=== PATIENT | female | born 1980 | race African-American/Black ===

== ENCOUNTER 2018-01-20 08:45 | Day surgery (SDC) | payer OTHER ==
[2018-01-19 15:22] VITALS: BMI 35.4
[2018-01-20] MEDS ORDERED: fentaNYL CITRATE 250 MCG/5 ML VIAL ONE (10:06)
[2018-01-20] MEDS ORDERED: ROCURONIUM BROMIDE 50 MG/5 ML VIAL ONE ×2 (10:06→12:30)
[2018-01-20] MEDS ORDERED: PROPOFOL 20 ML ONE (10:06)
[2018-01-20] MEDS ORDERED: DEXAMETHASONE SOD PHOSPHATE 4 MG/1 ML VIAL ONE (10:07)
[2018-01-20] MEDS ORDERED: LIDOCAINE HCL/PF 2% SDV 5ML VIAL ONE (10:07)
[2018-01-20] MEDS ORDERED: MIDAZOLAM HCL 2 MG/2 ML SINGLE DOSE VIAL ONE (10:07)
--- NOTE | 2018-01-20 10:41 | HP ---
Admitting History and Physical - Admission Chief Complaint: umbilical bulge History Source: Patient Limitations to Obtaining History: No Limitations - Past Medical History Hepatobiliary: Yes: Cholelithiasis ...LMP: 01/13/18 - Past Surgical History Past Surgical History: Yes: Cholecystectomy - Smoking History Smoking history: Current every day smoker Have you smoked in the past 12 months: Yes Aproximately how many cigarettes per day: 10 - Alcohol/Substance Use Hx Alcohol Use: Yes (occasional) Home Medications - Allergies Allergies/Adverse Reactions: Allergies Allergy/AdvReac Type Severity Reaction Status Date / Time codeine Allergy Difficulty Verified 01/19/18 15:14 Breathing - Home Medications Home Medications: Ambulatory Orders Ibuprofen [Motrin -] 800 mg PO ASDIR PRN 01/19/18 Review of Systems - Review of Systems Constitutional: reports: No Symptoms Eyes: reports: No Symptoms HENT: reports: No Symptoms Neck: reports: No Symptoms Cardiovascular: reports: No Symptoms Respiratory: reports: No Symptoms Gastrointestinal: reports: Abdominal Pain (over at umbilical bulge) Breasts: reports: No Symptoms Reported Neurological: reports: No Symptoms Physical Examination Vital Signs: Vital Signs Temperature 97.8 F 01/20/18 09:05 Pulse Rate 84 01/20/18 09:05 Respiratory Rate 18 01/20/18 09:05 Blood Pressure 143/67 01/20/18 09:05 O2 Sat by Pulse Oximetry (%) 100 01/20/18 09:06 Constitutional: Yes: Obese Eyes: Yes: Conjunctiva Clear HENT: Yes: Normocephalic Neck: Yes: Supple Cardiovascular: Yes: Regular Rate and Rhythm Respiratory: Yes: CTA Bilaterally Gastrointestinal: Yes: Normal Bowel Sounds, Abdomen, Obese, Hernia (4 cm umbilical bulge with tenderness) ...Rectal Exam: Yes: Deferred Renal/: Yes: WNL Extremities: Yes: WNL Neurological: Yes: Alert, Oriented Problem List - Problems (1) Ventral hernia with obstruction Assessment/Plan: robotic assisted ventral/umbilical hernia repair with mesh Code(s): K43.6 - OTHER AND UNSP VENTRAL HERNIA WITH OBSTRUCTION, W/O GANGRENE
[2018-01-20] MEDS ORDERED: oxyCODONE HCL 5 MG TABLET PO PRN (10:46)
[2018-01-20] MEDS ORDERED: ONDANSETRON 4 MG/2 ML VIAL IVPUSH PRN (10:46)
[2018-01-20] MEDS ORDERED: LACTATED RINGERS SOLUTION 1,000 ML IV SCH (11:00)
[2018-01-20] MEDS ORDERED: ceFAZolin SODIUM 1 GM VIAL IVPB ONE (11:31)
[2018-01-20] MEDS ORDERED: ACETAMINOPHEN 1000 MG/100 ML VIAL (NON FORMULARY) IVPB PRN (11:31)
[2018-01-20] MEDS ORDERED: BUPIVACAINE HCL/PF 0.5% (5MG/ML) 10 ML VIAL ONE (11:42)
[2018-01-20] MEDS ORDERED: BUPIVACAINE HCL/PF 0.5% (5MG/ML) 10 ML VIAL IJ ONE (12:15)
[2018-01-20] MEDS ORDERED: NEOSTIGMINE METHYLSULFATE 0.5 MG/ML - 10 ML MDV ONE (13:25)
[2018-01-20] MEDS ORDERED: GLYCOPYRROLATE 0.2 MG/1 ML VIAL ONE (13:26)
--- NOTE | 2018-01-20 13:57 | OP ---
Operative Note - Note: Operative Date: 01/20/18 Pre-Operative Diagnosis: Ventral Hernia Operation: Robotic ventral hernia repair Findings: as dictated Implants: mesh as dictated Post-Operative Diagnosis: Same as Pre-op Surgeon: Haja Omer Client Services Director: Be Bowden Anesthesiologist/SMALL ENGINE TECHNICIAN: Kali Thompson Anesthesia: General, Local (10cc .25% Marcaine ) Specimens Removed: none Estimated Blood Loss (mls): 10 (ml) Drains & Tubes with Location: none Fluid Volume Replaced (mls): 700 (ml LR) Operative Report Dictated: Yes
--- NOTE | 2018-01-20 13:58 | SURG ---
Surgery Positive Printer Operator Note Positive Printer Operator: Be Bowden PA-C Date of Service: 01/20/18 Diagnosis: Ventral Hernia Procedure: Robotic ventral hernia repair I was present for the entirety of the operative procedure. For further detail, please refer to operative report. Visit type - Case Type Case Type: Scheduled - Emergency Emergency Visit: No - New patient This patient is new to me today: Yes Date on this admission: 01/20/18
[2018-01-20] MEDS ORDERED: ONDANSETRON 4 MG/2 ML VIAL ONE (14:07)
[2018-01-20] MEDS ORDERED: KETOROLAC TROMETHAMINE 30 MG/1 ML VIAL IVPUSH PRN (14:08)
--- NOTE | 2018-01-20 14:20 | OP ---
DATE OF OPERATION: 01/20/2018 PROCEDURE: Robotic-assisted laparoscopic ventral/umbilical hernia repair with mesh. PREOPERATIVE DIAGNOSIS: Ventral/umbilical hernia. POSTOPERATIVE DIAGNOSIS: Ventral/umbilical hernia. SURGEON: Haja Omer MD METAL BUILDINGS ASSEMBLER: Consuelo Alcantara ANESTHESIA: General endotracheal. FINDINGS ON PROCEDURE: This is a 37-year-old female who presents with painful umbilical bulge which was about 4 cm in size with ill-defined defect associated with pain on insertion. The patient was advised hernia repair, and consent was obtained after discussing the risks, benefits, and alternatives of the procedure. DESCRIPTION OF PROCEDURE: Patient was brought to the operating room and placed in supine position. General endotracheal anesthesia was administered. Both arms were then tucked to the side, and a roll was placed under the patient's left flank. The abdomen was prepped and draped in the usual sterile fashion. Using the Veress needle technique, pneumoperitoneum was established via an 8-mm incision in the left subcostal region. This was followed by insertion of an 8-mm port. Two other 8- mm ports were inserted behind the axillary line 8 cm away from each other under direct vision using the 3D laparoscope. Afterwards, the target organ was set, and the robotic arms were docked. The 3D laparoscope was placed in the middle port, and the fenestrated bipolar grasper was inserted at the lower most port, and the EndoWrist sheri connected to monopolar cautery was inserted at the left subcostal port. The undersigned then started to commence the console part of the procedure. The preperitoneal pocket was made using the laparoscopic sheri, incising the parietal peritoneum at the area lateral to the rectus muscle. During the process, due to the wide diastasis of the patient, the pocket that was made eventually became a subcutaneous pocket, and about 10 x 10 cm size was made. Afterwards, a 10-inch rounded ProGrip mesh was deployed posterior under the subcutaneous level, and the pocket was closed with continuous V-Loc 2-0 absorbable stitches. An attempt to appose the diastasis proved to be unsuccessful due to its wide distance from each side of the midline. So, it was then decided to abandon the imbrication of the diastasis. The robotic arms were undocked, and the ports were removed. The wounds were closed with subcuticular Biosyn 4-0 sutures, and a pressure dressing was applied over the umbilicus. The patient was successfully extubated and transferred to the post-anesthesia care unit in satisfactory condition. ESTIMATED BLOOD LOSS: Minimal or about 5 mL. WOUND CLASS: Clean. The patient received 2 g of Ancef prior to the start of the procedure. Riddhi [id number] MTDD
[2018-01-20] MEDS ORDERED: KETOROLAC TROMETHAMINE 30 MG/1 ML VIAL ONE (14:29)
[2018-01-20] MEDS ORDERED: ACETAMINOPHEN INJECTION 100 ML IVPB ONE (14:29)
[2018-01-20 16:05] VITALS: TEMP 98
[2018-01-20 17:45] VITALS: BP 130/70; PULSE 88
== END 2018-01-20 17:00 | disposition home or self-care (01) ==
LOC: JASU-SURG 08:45
PROVIDERS: ATTEND Surgery
PROC: 8E0W4CZ Robotic Assisted Procedure of Trunk Region, Percutaneous Endoscopic Approach (ICD-10-PCS; 2018-01-20)
PROC: 0WUF4JZ Supplement Abdominal Wall with Synthetic Substitute, Percutaneous Endoscopic Approach (ICD-10-PCS; principal; 2018-01-20 10:00)
DX: K43.9 Ventral hernia without obstruction or gangrene (principal)
CPT/HCPCS: 49652; S2900; 84703; 94760; J0131

== ENCOUNTER 2018-07-04 11:46 | Day surgery (SDC) | payer OTHER ==
[2018-07-03 17:39] VITALS: BMI 35.4
[2018-07-04] MEDS ORDERED: LIDOCAINE HCL/PF 2% SDV 5ML VIAL ONE (13:00)
[2018-07-04] MEDS ORDERED: PROPOFOL 20 ML ONE ×2 (13:00)
[2018-07-04] MEDS ORDERED: MIDAZOLAM HCL 2 MG/2 ML SINGLE DOSE VIAL ONE (13:01)
[2018-07-04] MEDS ORDERED: ceFAZolin SODIUM 1 GM VIAL IVPB ONE (13:42)
[2018-07-04] MEDS ORDERED: ceFAZolin SODIUM 1 GM VIAL ONE (13:43)
[2018-07-04] MEDS ORDERED: OXYTOCIN 10 UNITS/ML VIAL ONE (13:47)
[2018-07-04] MEDS ORDERED: KETOROLAC TROMETHAMINE 30 MG/1 ML VIAL ONE (13:49)
[2018-07-04] MEDS ORDERED: ACETAMINOPHEN 325 MG TABLET (FP) PO PRN (14:01)
[2018-07-04] MEDS ORDERED: IBUPROFEN 400 MG TABLET (FP) PO PRN (14:01)
[2018-07-04] MEDS ORDERED: ONDANSETRON 4 MG/2 ML VIAL IVPUSH PRN (14:01)
[2018-07-04] MEDS ORDERED: RHO(D) IMMUNE GLOBULIN 1,500 UNIT DISP.SYRIN IM ONE (14:04)
[2018-07-04] MEDS ORDERED: LACTATED RINGERS SOLUTION 1,000 ML IV SCH (14:15)
[2018-07-04] MEDS ORDERED: ACETAMINOPHEN 325 MG TABLET (FP) ONE (14:56)
[2018-07-04 15:21] VITALS: PULSE 87
--- NOTE | 2018-07-04 15:41 | OP ---
DATE OF OPERATION: 07/04/2018 DATE OF DICTATION: 07/04/2018 PREOPERATIVE DIAGNOSIS: Missed . POSTOPERATIVE DIAGNOSIS: Missed . PROCEDURE: 1. Suction dilatation and curettage. 2. Attempted karyotyping. SURGEON: Gianfranco Corral MD ANESTHESIOLOGIST: ADINA Garrison ANESTHESIA: General, LMA. PROCEDURE AND FINDINGS: Under general anesthesia in dorsal lithotomy position patient was examined. Uterus was found to be enlarged beyond gestational age with possible leiomyomata. It felt at least 8, possibly 10 weeks' size. There was mild relaxation and a multiparous vagina. Cervix was closed. Routine prep and drape was done. Cervix was grasped with a tenaculum and gently dilated. Suction curet number 9 was negotiated into the cavity. Suction curettage was performed producing reasonably small amount of tissue. Sharp curettage alternated. Those procedures were repeated until uterine cavity was completely empty. The patient was given oxytocin IV during the procedure. Attempt was made to have good farm loan representative tissue for the karyotyping. That was unsuccessful and decision was made not to send the specimen. With uterus well contracted although still larger than normal bleeding was under complete control. Total blood loss was minimal, about 10 to 15 mL. Patient was awakened without any problems and transferred to the PACU comfortable and stable. Specimen was sent for permanent pathology. GIANFRANCO CORRAL MD [id number]
[2018-07-04 16:40] VITALS: BP 130/60; TEMP 98
--- NOTE | 2018-07-06 14:12 | PATH ---
Surgical Pathology Report Patient Name: SHERYL FLORES Med. Rec. #: [id number] /Age/Gender: 1980 (Age: 37) / F Account: [id number] Location: [facility] SURGICAL Taken: 07/04/2018 Received: 07/05/2018 Reported: 07/06/2018 Physicians: Thom Corral MD Specimen(s) Received UTERINE CONTENTS Clinical History Missed Final Diagnosis UTERINE CONTENTS, SUCTION DILATION AND CURETTAGE: IMMATURE CHORIONIC VILLI CONSISTENT WITH PRODUCTS OF CONCEPTION. Electronically Signed Esther Ingram M.D. Gross Description Received in formalin labeled "uterine contents," is a 7.0 x 5.5 x 1.2 cm aggregate of campbell-brown soft tissue fragments. The villous tissue is identified. No somatic tissue is identified. A medical device sales representative portion is submitted in one cassette. /07/05/2018 saudi07/05/2018
== END 2018-07-04 16:20 | disposition home or self-care (01) ==
LOC: JASU-SURG 11:46
PROVIDERS: ATTEND Specialist
PROC: 10D17ZZ Extraction of Products of Conception, Retained, Via Natural or Artificial Opening (ICD-10-PCS; principal; 2018-07-04 13:00)
DX: O02.1 Missed abortion (principal)
CPT/HCPCS: 86850; 86900; 86901; 88305-TC; 94760

== ENCOUNTER 2018-09-03 11:50 | Emergency (ER) | payer OTHER | END 2018-09-03 14:27 | disposition home or self-care (01) | LOC: JER 11:50 ==